=== PATIENT | female | born 1980 ===

== ENCOUNTER 2017-05-13 07:01 | Emergency (ER) | payer MEDICAID ==
--- NOTE | 2017-05-13 08:29 | OBHP ---
Datetime: 05/13/2017 08:16 IP Adm Impression: Term, intrauterine ; No Active Labor; Intact Membranes IP Adm Impression Other: Advanced maternal age. Late to care IP Admit Plan: Discharge home Admit Comment, IP Provider: 37 y.o. , LMP 08/08/16, MUKUL 05/15/17, EGA 39w 5d confirmed by ultraso und 04/01/17 at 33w 6d (late transfer of care) c/o ctx - onset 2000 hours 05/12/17; crampy' then, pain scale 7/10; now 8/10 to 9/10; irregular. Also, reports vaginal spotting 0200 hours, - light staining to toilet paper upon wiping. Did not pass mucous plug. (+) AFM; denies LOF. care: [facility] - late transfer at 33 wee from [facility]. 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 Denies H/O STIs or abnormal Pap PMH: Migraine headaches PSH: denies NKDA Meds: PNV - QD; tylenol, PRN (headaches) Soc Hx: denies tobacco, illicit drug or EtOH use. x 3 years. Currently unemployed - [employer] [facility] in [facility]. Fam Hx: Mother and father - both alive and well; both, HTN. (+) Fam H/O DM; no fam h/o cancer P.E.: as above. Small, in NAD. Awake, alert, oriented to time, person and place. Accompanied by her and her mother Assessment: 37 y.o. P0, 39w 5d, not in active labor. Category 1 tracing. Clinically stable. Plan: 1) Discharge home 2) Reviewed S/S labor 3) Keep appointment for today, and all subsequent visits Pelvic Type - PN: Adequate Extremities - PN: Normal Abdomen - PN: Normal Back - PN: Normal Breast - PN: Normal Lungs - PN: Normal Heart - PN: Normal Thyroid - PN: Not Done Neurologic - PN: Normal HEENT - PN: Normal General - PN: Normal Presentation-Admit: Vertex FHR - Baseline A Provider: 135 Membranes, Provider: Intact Contraction Comments Provider: irregular Comments, ACOG Physical Exam: Abdomen: Gravid. Soft. Non tender All other systems reviewed and are negative Gestation - Est Wks by US: 39w 5d IP Hx Assessment: The History has been Reviewed and is Current EGA AdmitDate IP: 39.5 Vital Signs Provider: Reviewed; Within Normal Limits IP Chief Complaint: Uterine contractions NICHD Variability Prov Fetus A: Moderate 6-25bpm NICHD Accel Fetus A IP Provider: [id number] FHR Category Provider Fetus A: Category I NICHD Decel Fetus A IP Provider: None Dilatation, Provider: 1 Effacement, Provider: 30 Station, Provider: -3 Genitourinary Exam: Normal DTRs - PN: Not Done
[2017-05-13 13:15] VITALS: BP 112/74; PULSE 79
== END 2017-05-13 08:05 | disposition home or self-care (01) ==
LOC: C.EROB 07:01
DX: O26.893 Other specified pregnancy related conditions, third trimester (principal); Z3A.39 39 weeks gestation of pregnancy

== ENCOUNTER 2017-05-14 08:32 | Emergency (ER) | payer MEDICAID ==
--- NOTE | 2017-05-14 09:28 | OBHP ---
Datetime: 05/14/2017 09:16 IP Adm Impression: Term, intrauterine ; No Active Labor IP Admit Plan: Discharge home Admit Comment, IP Provider: Chief [id number] HPI 37 y.o. , LMP 08/08/16, MUKUL 05/15/17, EGA 39w 6d confirmed by ultrasound 04/01/17 at 33w 6d (late transfer of care) c/o ctx - Patient was seen yesterday and was 1 cm dilated and hence was disch arged home care: [facility] - late transfer at 33 wee from [facility]. 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 Denies H/O STIs or abnormal Pap PMH: Migraine headaches PSH: denies NKDA Meds: PNV - QD; tylenol, PRN (headaches) Soc Hx: denies tobacco, illicit drug or EtOH use. x 3 years. Currently unemployed - [employer] in [facility]. Fam Hx: Mother and father - both alive and well; both, HTN. (+) Fam H/O DM; no fam h/o cancer P.E.: as above. Small, in NAD. Awake, alert, oriented to time, person and place. Accompanied by her and her mother Assessment: 37 y.o. P0, 39w 6d, not in active labor. Category 1 tracing. Clinically stable.Essent iabhupendra no change in cervical exam since yesterday.Patient discharged home.Discussed with patient about relaxation techniques for prodromal labor. active labor precautions given Pelvic Type - PN: Adequate Extremities - PN: Normal Abdomen - PN: Normal Back - PN: Normal Lungs - PN: Normal Heart - PN: Normal Neurologic - PN: Normal General - PN: Normal Weight - Estimated: 3200 Presentation-Admit: Vertex Contraction Comments Provider: irregular Gestation - Est Wks by US: 39.6 IP Hx Assessment: The History has been Reviewed and is Current EGA AdmitDate IP: 39.6 Vital Signs Provider: Reviewed; Within Normal Limits IP Chief Complaint: Uterine contractions FHR Category Provider Fetus A: Category I Dilatation, Provider: 1 Effacement, Provider: 50 Station, Provider: -3 Genitourinary Exam: Normal DTRs - PN: Normal
[2017-05-14 13:29] VITALS: BP 121/82; PULSE 103; RESP 20; TEMP 99.2
== END 2017-05-14 09:28 | disposition home or self-care (01) ==
LOC: C.EROB 08:32
DX: O47.1 False labor at or after 37 completed weeks of gestation (principal); Z3A.39 39 weeks gestation of pregnancy